=== PATIENT | female | born 1945 | race Caucasian/White ===

== ENCOUNTER → 2016-10-02 | Outpatient (CLI) | payer MEDICARE, OTHER ==
--- NOTE | 2016-10-03 07:58 | MAM ---
EXAM DESCRIPTION: MAMMO BREAST SCREENING BILATERAL CLINICAL HISTORY: 71 y/o F, Screening mammogram COMPARISON: 05 August 2014 TECHNIQUE: CC and MLO digital mammograms with computer aided detection. FINDINGS: There are scattered fibroglandular densities. There is no dominant mass nor any suspicious microcalcifications. Benign microcalcifications are present. IMPRESSION: BI-RADS 2: BENIGN FOLLOW-UP: Routine mammography screening. Electronically signed by: Thanh Mathur MD 10/03/2016 07:57
== END | disposition home or self-care (01) ==
LOC: MAMMO 15:51
PROVIDERS: ATTEND Family Medicine
DX: Z12.31 Encounter for screening mammogram for malignant neoplasm of breast (principal)

== ENCOUNTER → 2017-11-19 | Outpatient (CLI) | payer MEDICARE, OTHER ==
--- NOTE | 2017-11-21 15:04 | MAM ---
EXAM DESCRIPTION: 3D Screening BILATERAL : Digital Mammography. CLINICAL HISTORY: 72 years Female SCREENING . No complaints. Remote family history of breast cancer. Postmenopausal. No HRT. COMPARISON: 2-D digital screening bilateral study 10/02/2016. Report from prior examination also reviewed. TECHNIQUE: Bilateral CC and MLO projection full-field images, 3-D tomosynthesis digital mammographic technique. Also bilateral synthesized CC/ MLO full-field images. CAD not utilized. FINDINGS: The breast parenchymal density pattern is: Scattered areas of fibroglandular density. No skin thickening or nipple retraction bilateral axillary lymph nodes. Bilateral solitary coarse calcifications and microcalcifications. Focal asymmetry in the anterior third of the right breast approximately 3 cm from the nipple at the 600 clock position. Bilateral intramammary lymph nodes which are stable since the prior study.. No focal, stellate mass or density, focal asymmetry , and no suspicious microcalcifications left breast. IMPRESSION: BI-RADS CATEGORY: 0 - INCOMPLETE- Need additional imaging evaluation. FOLLOW-UP: Recall for additional imagin-D tomosynthesis bilateral LM images. Anterior breast. 2-D digital magnification CC image anterior right breast. Targeted ultrasound right breast imaging if indicated by diagnostic study. Written communication concerning the IMPRESSION and Follow-up, will be mailed to the patient and referring health care provider. Electronically signed by: Yeison Dominguez MD 11/21/2017 3:02 PM CDT
== END | disposition home or self-care (01) ==
LOC: MAMMO 13:44
PROVIDERS: ATTEND Family Medicine
DX: Z12.31 Encounter for screening mammogram for malignant neoplasm of breast (principal)

== ENCOUNTER → 2017-12-06 | Outpatient (CLI) | payer MEDICARE, OTHER ==
--- NOTE | 2017-12-10 09:50 | MAM ---
EXAM DESCRIPTION: 3D Diagnostic, Bilateral: Digital Mammography CLINICAL HISTORY: 72 yearsFemaleABNORMAL MAMMO . Focal asymmetry anterior right breast on recent screening examination.. COMPARISON: Bilateral 3-D tomosynthesis screening examination 11/19/2017.. Targeted right breast ultrasound following this examination. Reports from prior examinations also reviewed. TECHNIQUE: Bilateral LM projection full-field images, 3-D tomosynthesis digital mammographic technique. Also bilateral synthesized LM full-field images. Orthogonal digital magnification images of the anterior right breast. CAD not utilized. FINDINGS: The breast parenchymal density pattern is: Scattered areas of fibroglandular density. No skin thickening or nipple retraction solitary microcalcifications. Focal asymmetry noted at the 1200 and 600 clock positions of the right breast in the retroareolar region, but no definite mass. Scattered microcalcifications. No focal, stellate mass or density, focal asymmetry , and no suspicious microcalcifications left breast. ULTRASOUND: Scanning in the retroareolar breast at the 600 and 1200 clock positions. Heterogeneous fatty and fibroglandular tissues. Initially, hypoechoic regions were noted which appeared to be masslike with parallel orientation and acoustic shadowing. During scanning later in the examination, no masses were identified with irregular areas of shadowing related to the heterogeneity of the breast. No distinct solid mass, no discrete cysts. No parenchymal edema or large calcifications. No skin changes. No abnormal parenchymal vascularity. IMPRESSION: BI-RADS CATEGORY: 3 - PROBABLY BENIGN. Management: Short interval (6-month) follow-up digital diagnostic right breast mammography, May 2018. Targeted right breast ultrasound if indicated by diagnostic images. The FINDINGS and the FOLLOW-UP plan were reviewed in person with the patient after the examination. Written communication explaining the IMPRESSION and FOLLOW-UP will be mailed to the patient and referring care provider. Electronically signed by: Yeison Dominguez MD 12/10/2017 9:49 AM CDT
--- NOTE | 2017-12-10 09:51 | US ---
EXAM DESCRIPTION: Breast,Right: Ultrasound CLINICAL HISTORY: 72 yearsFemaleABNORMAL MAMMO COMPARISON: Digital diagnostic 3-D tomosynthesis bilateral breast on this visit. 3-D screening bilateral mammography 11/19/2017. TECHNIQUE: Transcutaneous scanning of the right breast utilizing two-dimensional and Doppler modes. Scanning performed by the press set up and Dr. Dominguez. FINDINGS: Scanning in the retroareolar breast at the 600 and 1200 clock positions. Heterogeneous fatty and fibroglandular tissues. Initially, hypoechoic regions were noted which appeared to be masslike with parallel orientation and acoustic shadowing. During scanning later in the examination, no masses were identified with irregular areas of shadowing related to the heterogeneity of the breast. No distinct solid mass, no discrete cysts. No parenchymal edema or large calcifications. No skin changes. No abnormal parenchymal vascularity. IMPRESSION: 1. Bi-Rads Category 3: Probably Benign. 2. Please refer to diagnostic 3-D tomosynthesis bilateral mammographic examination and report on this visit. The FINDINGS and the FOLLOW-UP plan were reviewed in person with the patient after the examination. Written communication explaining the IMPRESSION and FOLLOW-UP will be mailed to the patient and referring care provider. Electronically signed by: Yeison Dominguez MD 12/10/2017 9:49 AM CDT
== END ==
LOC: MAMMO 11:14
PROVIDERS: ATTEND Nurse Practitioner Family
DX: R92.8 Other abnormal and inconclusive findings on diagnostic imaging of breast (principal)
CPT/HCPCS: 76641; 77066; G0279

== ENCOUNTER → 2018-05-23 | Outpatient (CLI) | payer MEDICARE, OTHER ==
--- NOTE | 2018-05-23 15:52 | US ---
EXAM DESCRIPTION: Breast,Right: Ultrasound CLINICAL HISTORY: 72 yearsFemaleABNORMAL MAMMO, 6 MONTH FOLLOW UP COMPARISON: Digital diagnostic tomosynthesis right breast today Digital diagnostic tomosynthesis bilateral breast 12/06/2017. Targeted right breast ultrasound 12/06/2017. TECHNIQUE: Transcutaneous scanning of the right breast utilizing gonzalez-scale and Doppler modes. Scanning performed by the eeg tech and Dr. Dominguez. FINDINGS: Scanning of the upper right breast with emphasis at the 12:00 position in the retroareolar region. Heterogeneous fibroglandular and fatty echotexture. No distinct solid mass or cyst. No large calcification or parenchymal edema. No overlying skin changes. No abnormal vascularity. IMPRESSION: 1. Bi-Rads Category 2: Benign. 2. Please refer to diagnostic digital right breast tomosynthesis reported examination today. The FINDINGS and the FOLLOW-UP plan were reviewed in person with the patient after the examination. Written communication explaining the IMPRESSION and FOLLOW-UP will be mailed to the patient and referring care provider. Electronically signed by: Yeison Dominguez MD 05/23/2018 3:51 PM CDT
--- NOTE | 2018-05-23 16:05 | MAM ---
EXAM DESCRIPTION: 3D Diagnostic, Right: Digital Mammography CLINICAL HISTORY: 72 yearsFemaleABNORMAL MAMMO 6 MONTH FOLLOW UP focal asymmetry right breast. Equivocal findings targeted ultrasound right breast 12/06/2017. COMPARISON: Bilateral diagnostic digital breast tomosynthesis 12/06/2017.. Targeted right breast ultrasound following this examination.. TECHNIQUE: Right LM projection full-field images, digital mammographic tomosynthesis technique. Focal digital magnification CC and MLO projections anterior right breast. CAD not utilized. FINDINGS: The breast parenchymal density pattern is: Scattered areas of fibroglandular density. More dense and slightly nodular anterior right breast. No skin thickening or nipple retraction solitary microcalcifications. No new focal asymmetry, or change in region of interest seen on the prior study. Ultrasound: Scanning of the upper right breast with emphasis at the 12:00 position in the retroareolar region. Heterogeneous fibroglandular and fatty echotexture. No distinct solid mass or cyst. No large calcification or parenchymal edema. No overlying skin changes. No abnormal vascularity. IMPRESSION: 1. Bi-Rads Category 2: Benign. 2. Please refer to diagnostic right digital breast tomosynthesis examination and report on this visit. The FINDINGS and the FOLLOW-UP plan were reviewed in person with the patient after the examination. Written communication explaining the IMPRESSION and FOLLOW-UP will be mailed to the patient and referring care provider. Electronically signed by: Yeison Dominguez MD 05/23/2018 4:04 PM CDT
== END ==
LOC: MAMMO 12:30
PROVIDERS: ATTEND Family Medicine
DX: R92.8 Other abnormal and inconclusive findings on diagnostic imaging of breast (principal)
CPT/HCPCS: 76641; 77065; G0279

== ENCOUNTER → 2018-11-21 | Outpatient (CLI) | payer MEDICARE, OTHER ==
--- NOTE | 2018-11-25 11:40 | MAM ---
EXAM DESCRIPTION: 3D Screening BILATERAL : Digital Mammography. CLINICAL HISTORY: 73 years Female SCREENING . No complaints or personal history of breast cancer. Remote family history of breast cancer. Postmenopausal 20 years. No childbirth. No HRT. Lifetime risk of developing breast cancer (Tyrer-Cuzick model)(%): 5.9. COMPARISON: Bilateral screening digital breast tomosynthesis 11/19/2017 diagnostic right breast tomosynthesis 05/23/2018. TECHNIQUE: Bilateral CC and MLO projection full-field images, digital tomosynthesis mammographic technique. Bilateral digital 2-D full-field MLO images. CAD not available for tomosynthesis or 2-D images. FINDINGS: The breast parenchymal density pattern is: Scattered areas of fibroglandular density. No skin thickening or nipple retraction. Bilateral solitary microcalcifications. Bilateral axillary lymph nodes. Stable focal asymmetry upper outer quadrant anterior third left breast. Bilateral vascular calcifications. No new focal, stellate mass or density, focal asymmetry , and no suspicious microcalcifications bilaterally. Stable mammograms compared to prior study. IMPRESSION: Benign exam. BIRAD CATEGORY: 2 BENIGN FINDINGS. RECOMMENDATIONS: FOLLOW UP: Routine digital bilateral mammographic screening, one year interval from November 2018. Written communication explaining the IMPRESSION and follow-up, will be mailed to the patient and referring health care provider. The FINDINGS and the FOLLOW-UP plan were reviewed in person with the patient after the examination. According to the [employer], yearly mammograms are recommended starting at age 40 and continuing as long as a woman is in good health. Any breast change noted on a breast self-exam should be reported promptly to the patient's healthcare provider. Breast MRI is recommended for women with an approximately 20-25% or greater lifetime risk of breast cancer, including women with a strong family history of breast or ovarian cancer and women who have been treated for Hodgkin's disease. A negative mammographic report should not delay tissue diagnosis in patients with significant clinical history or physical findings. Extremely dense breast tissue limits the sensitivity of digital mammography. Electronically signed by: Yeison Dominguez MD 11/25/2018 11:37 AM CDT
== END ==
LOC: MAMMO 14:00
PROVIDERS: ATTEND Family Medicine
DX: Z12.31 Encounter for screening mammogram for malignant neoplasm of breast (principal)

== ENCOUNTER → 2019-12-26 | Outpatient (CLI) | payer MEDICARE, OTHER ==
--- NOTE | 2019-12-29 12:36 | MAM ---
EXAM DESCRIPTION: 3D Screening BILATERAL : Digital Mammography. CLINICAL HISTORY: 74 years Female ROUTINE SCREEN history sheet. Lifetime risk of developing breast cancer (Tyrer-Cuzick model)(%): Not calculated COMPARISON: Bilateral screening digital breast tomosynthesis November 2018 and November 2017. Digital diagnostic right breast tomosynthesis November 2017 and May 2018.. No prior reports available. TECHNIQUE: Bilateral CC and MLO projection full-field images, digital tomosynthesis mammographic technique. Bilateral digital 2-D full-field MLO images. CAD available for 2-D images. FINDINGS: The breast parenchymal density pattern is: Scattered areas of fibroglandular density. No skin thickening or nipple retraction. Solitary microcalcifications. Axillary lymph nodes. Group of benign type calcifications in the right breast. Focal asymmetries stable in the upper outer quadrant of the anterior left breast. No new focal, stellate mass or density, focal asymmetry , and no suspicious microcalcifications . Stable mammograms compared to prior study. IMPRESSION: Benign exam. BIRAD CATEGORY: 2 BENIGN FINDINGS. RECOMMENDATIONS: FOLLOW UP: Routine digital bilateral mammographic screening, one year interval from December 2019. Written communication explaining the IMPRESSION and follow-up, will be mailed to the patient and referring health care provider. According to the [employer], yearly mammograms are recommended starting at age 40 and continuing as long as a woman is in good health. Any breast change noted on a breast self-exam should be reported promptly to the patient's healthcare provider. Breast MRI is recommended for women with an approximately 20-25% or greater lifetime risk of breast cancer, including women with a strong family history of breast or ovarian cancer and women who have been treated for Hodgkin's disease. A negative mammographic report should not delay tissue diagnosis in patients with significant clinical history or physical findings. Extremely dense breast tissue limits the sensitivity of digital mammography. Electronically signed by: Yeison Dominguez MD 12/29/2019 12:34 PM CDT
== END ==
LOC: MAMMO 14:00
PROVIDERS: ATTEND Family Medicine
DX: Z12.31 Encounter for screening mammogram for malignant neoplasm of breast (principal)